=== PATIENT | male | born 1945 | race Caucasian/White ===

== ENCOUNTER 2020-07-15 11:58 | Outpatient (CLI) | payer MEDICARE, SELFPAY ==
--- NOTE | 2020-07-15 12:12 | ECG_ITS ---
Measurements Intervals [place] Rate: 106 P: MO: 0 QRS: 1 QRSD: 92 T: 42 QT: 322 QTc: 429 Interpretive Statements ATRIAL FIBRILLATION WITH RAPID VENTRICULAR RESPONSE ABNORMAL ECG Electronically Signed On 07-15-2020 12:59:34 CDT by Yunior Hernandez D.O.
== END 2020-07-15 11:59 | disposition home or self-care (01) ==
PROVIDERS: PCP Physician Assistant; Visit Provider Physician Assistant
DX: I49.9 Cardiac arrhythmia, unspecified (principal)
CPT/HCPCS: 93005

== ENCOUNTER 2020-10-14 11:33 | Outpatient (CLI) | payer MEDICARE, SELFPAY ==
[2020-10-14 12:49] LABS: Thyroid Stimulating Hormone Reflex 0.843 uIU/mL (0.465-4.68)
== END 2020-10-14 11:34 | disposition home or self-care (01) ==
LOC: ANHLAB 11:34
PROVIDERS: PCP Physician Assistant; Visit Provider Internal Medicine Cardiovascular Disease
DX: I48.91 Unspecified atrial fibrillation (principal)
CPT/HCPCS: 36415; 84443

== ENCOUNTER 2020-11-05 07:42 | Outpatient (CLI) | payer MEDICARE, SELFPAY ==
--- NOTE | 2020-11-05 07:45 | ECHO_ITS ---
Patient Info Name: Devin Trinidad Age: 75 years : 1945 Gender: Male Ht: 72 in Wt: 240 lbs BSA: 2.38 m2 HR: 110 bpm BP: 168 / 107 mmHg Technical Quality: Good Exam Date: 11/05/2020 8:12 AM Exam Location: [facility] Patient Status: Outpatient Admit Date: 11/05/2020 Staff Ordering Physician: Yunior Hernandez DO Telesales Specialist: Urbano King RDCS, RT Attending Provider: Yunior Hernandez DO Referring Physician: David BUSTAMANTE; Exam Type: CA echo dop color flow w con Study Info Indications I48.1 - Persistent atrial fibrillation Complete two-dimensional, color flow and Doppler transthoracic echocardiogram is performed. Strain analysis performed. Summary 1. Complete two-dimensional, color flow and Doppler transthoracic echocardiogram is performed. 2. Left ventricular chamber dimension is normal. 3. Left ventricular systolic function is normal, estimated at 60-65%. 4. There is mildly increased left ventricular wall thickness. 5. The left ventricular diastolic function is normal. 6. E/e' 5 is not elevated. 7. Global longitudinal strain is abnormal at -14.7%. 8. Atrial fibrillation. 9. Left atrial chamber dimension is mildly enlarged. 10. Right atrial chamber dimension is mildly enlarged. 11. There is mild mitral valve regurgitation. 12. There is mild to moderate tricuspid valve regurgitation. 13. No pulmonary hypertension, estimated pulmonary arterial systolic pressure is 33 mmHg. Left Ventricle E/e' 5 is not elevated. Global longitudinal strain is abnormal at -14.7%. Atrial fibrillation. Left ventricular chamber dimension is normal. Left ventricular systolic function is normal, estimated at 60-65%. There is mildly increased left ventricular wall thickness. The left ventricular diastolic function is normal. Right Ventricle Right ventricular chamber dimension is normal. Right ventricular systolic function is normal. Left Atria Left atrial chamber dimension is mildly enlarged. Right Atria Right atrial chamber dimension is mildly enlarged. Aortic Valve The aortic valve is trileaflet. There is no aortic valve stenosis. There is no aortic valve regurgitation. Pulmonic Valve There is no pulmonic regurgitation. Mitral Valve There is no mitral valve stenosis. There is mild mitral valve regurgitation. Tricuspid Valve There is mild to moderate tricuspid valve regurgitation. No pulmonary hypertension, estimated pulmonary arterial systolic pressure is 33 mmHg. Pericardium/Pleural There is no pericardial effusion. Inferior Vena Cava Normal inferior vena cava with >50% collapse upon inspiration consistent with normal right atrial pressure, 5 mmHg. Aorta The aortic root size at the sinus of Valsalva is normal. Left Ventricular Outflow Tract Name Value Normal LVOT 2D LVOT Diameter 2.04 cm LVOT Doppler LVOT Peak Gradient 2 mmHg LVOT Mean Gradient 1 mmHg LVOT VTI 16.49 cm LVOT VTI/AV VTI Ratio 0.76 LVOT Stroke Volume 53.89 ml
== END 2020-11-05 07:43 | disposition home or self-care (01) ==
PROVIDERS: PCP Physician Assistant; Visit Provider Internal Medicine Cardiovascular Disease
DX: I48.91 Unspecified atrial fibrillation (principal); I51.7 Cardiomegaly
CPT/HCPCS: C8929

== ENCOUNTER 2023-09-06 11:32 | Outpatient (CLI) | payer MEDICARE, SELFPAY ==
[2023-09-06 11:58] LABS: Hematocrit 38.2 % (42.0-52.0); Hemoglobin 12.7 g/dL (14.0-18.0); Mean Corpuscular HGB Conc 33.2 g/dl (32-36); Mean Corpuscular Hemoglobin 32.8 pg (26-34); Mean Corpuscular Volume 98.7 fl (80-100); Mean Platelet Volume 11.7 fl (7.4-10.4); Platelet Count Result 106 k/mm3 (150-375); Red Blood Count 3.87 M/mm3 (4.6-6.20); Red Cell Distribution Width 14.4 % (11.5-14.5)
[2023-09-06 12:11] LABS: Atypical Lymphocytes Present; Band Neutrophils Percent 5 % (0-6); Eosinophils Absolute Manual 0.02 K/mm3 (0.02-0.5); Eosinophils Percent Manual 1 % (0-4); Giant Platelets Present; Lymphocytes Absolute Manual 1.24 K/mm3 (1.1-4.5); Monocytes Absolute Manual 0.28 K/mm3 (0.1-0.90); Monocytes Percent Manual 14 % (3-9); Neutrophils Absolute Manual 0.46 K/mm3 (1.3-6.7); Neutrophils Percent Manual 18 % (46-73); Platelet Estimate Decreased (Adequate); Schistocytes None Seen (NORMAL); Total Cells Counted 100
[2023-09-06 16:32] LABS: Iron 101 ug/dL (49-181)
[2023-09-06 16:35] LABS: Alanine Aminotransferase 14 U/L (6-50); Albumin Level 4.5 g/dL (3.5-5.1); Alkaline Phosphatase 56 U/L (38-126); Anion Gap 9 mmol/L (8-16); Aspartate Amino Transferase 22 U/L (17-59); Bilirubin,Total 0.8 mg/dL (0.2-1.3); Blood Urea Nitrogen 16 mg/dL (9-20); Calcium 9.1 mg/dL (8.4-10.2); Carbon Dioxide 26 mmol/L (22-30); Chloride 107 mmol/L (98-107); Estimated Glomerular Filt Rate > 60; Glucose 115 mg/dL (65-110); Lactate Dehydrogenase 158 U/L (120-246); Potassium 4.5 mmol/L (3.4-5.0); Sodium 142 mmol/L (137-145)
[2023-09-06 16:43] LABS: Percent Iron Saturation 31 % (20-50)
[2023-09-06 17:41] LABS: Folic Acid 6.9 ng/mL (2.76->20)
[2023-09-10 05:07] LABS: Methylmalonic Acid 164 nmol/L (87-318)
[2023-09-13 09:53] LABS: Soluble Transferrin Receptor 0.77 mg/L (0.76-1.76)
== END 2023-09-06 11:33 | disposition home or self-care (01) ==
LOC: ANHLAB 11:34
PROVIDERS: PCP Physician Assistant; Visit Provider Internal Medicine Hematology & Oncology
DX: D64.9 Anemia, unspecified (principal); D61.818 Other pancytopenia
CPT/HCPCS: 36415; 80053; 82607; 82728; 82746; 83540; 83550; 83615; 83921; 84238; 85025

== ENCOUNTER 2023-09-14 00:38 | Day surgery (SDC) | payer MEDICARE, SELFPAY ==
--- NOTE | ~2023-09-14 | BM_ITS ---
EXAMINATION: CCL bone marrow asp w bx diag ORDER COMPLETED DATE: 09/14/2023 10:03 INDICATION: Pancytopenia TECHNIQUE: A time-out was performed to verify the patient's name, date of , and procedure to b e performed. The procedure including the risks, benefits, and alternatives was discussed with the pat ient. Risks discussed included bleeding and infection. The patient understood the risks and agreed to proceed. The skin overlying the right posterior iliac spine was prepped and draped in usual sterile fashion. Anesthetic was administered with 1% lidocaine subcutaneously. Systemic analgesia was provide d with 50 mcg fentanyl IV. An 11 gauge needle was inserted into the ilium with fluoroscopic guidance. Bone marrow was aspirated. An 8 gauge needle was then inserted into the ilium with fluoroscopic guid ance. A core bone marrow biopsy was obtained. There were no immediate complications. Fluoroscopy expo sure time was 0.1 minutes. The total number of images was 17. Total DAP was 160 mGycm^2 FINDINGS: Real-time fluoroscopy demonstrates a marker overlying the right posterior iliac spine. IMPRESSION: 1. Successful fluoro-guided bone marrow aspiration. 2. Successful fluoro-guided bone marrow core biopsy. Reviewed, dictated and finalized at location A. HOUSE SORTER
[2023-09-14 07:58] VITALS: BMI 27.8
[2023-09-14 08:00] VITALS: BP 127/88; PULSE 98; RESP 12; TEMP 36.6; O2SAT 100
[2023-09-14 08:24] LABS: Eosinophils Percent Auto 0.6 % (0-4.4); Hematocrit 40.8 % (42.0-52.0); Hemoglobin 13.7 g/dL (14.0-18.0); Immature Platelet Fraction Pct 11.7 % (0.9-11.2); Lymphocytes Absolute Auto 0.88 K/mm3 (0.9-3.2); Lymphocytes Percent Auto 51.8 % (18.3-44.2); Mean Corpuscular HGB Conc 33.6 g/dl (32-36); Mean Corpuscular Hemoglobin 32.5 pg (26-34); Mean Corpuscular Volume 96.7 fl (80-100); Mean Platelet Volume 13.1 fl (7.4-10.4); Monocytes Absolute Auto 0.5 K/mm3 (0.1-0.6); Monocytes Percent Auto 27.1 % (2.6-8.5); Neutrophils Absolute Auto 0.4 K/mm3 (1.3-6.7); Neutrophils Percent Auto 20.5 % (45.5-73.1); Platelet Count Result 111 k/mm3 (150-375); Red Blood Count 4.22 M/mm3 (4.6-6.20); Red Cell Distribution Width 14.5 % (11.5-14.5)
[2023-09-14 08:29] LABS: White Blood Count 1.7 K/mm3 (4.5-10.0)
[2023-09-14 08:33] LABS: INR 1.2; Prothrombin Time 15.2 Seconds (11.1-14.7)
--- NOTE | 2023-09-14 09:12 | WPDMODSED ---
Moderate Sedation Note-Pt Data Patient Data Diagnosis: pancytopenia Present Complaint: pancytopenia Procedure to be performed/Plan: bone marrow biopsy Allergies Allergy/AdvReac Type Severity Reaction Status Date / Time No Known Allergies Allergy Mild Verified 09/14/23 07:56 Home Medications Medication Instructions Recorded Confirmed Type apixaban 5 mg tablet (Eliquis) 5 mg PO BID 09/13/23 09/13/23 History ibuprofen-diphenhydramine citrate 2 cap PO HS PRN Insomnia 09/13/23 09/13/23 History 200 mg-38 mg tablet (Advil PM) Sedation/Anesthesia: No previous sedation/anesthesia problems (including family history). [facility] Past Medical History Medical History Arthritis Hemorrhoids Hyperlipidemia Surgical History Surgical History H/O colonoscopy History of cholecystectomy Family History Family History Sibling Family history of malignant neoplasm of breast in first degree relative Father Family history of heart disease in male family member before age 55 Social History Social History Smoking status: Never smoker Second hand tobacco smoke exposure: No Alcohol intake: current Drinks per week: 2 Alcohol use details: does not use every week Substance use type: marijuana Last use: 09/13/23 Lack of Transportation: No Lack of Food: Never True Current Housing: I Have Housing Concerned About Future Housing: No Difficulty Paying Gas/Electric Bills: No Difficulty Paying for Meds: No Currently Unemployed: No Education: Associate Degree Difficulty w/ Childcare or Family Care: No Living arrangements: with family Spiritual care concerns: No Mod Sed Physical Exam Physical Exam Pre Procedural Exam: Normal: Appearance, Throat, Lungs, Heart Rate and Heart Rhythm Hours since solid foods: 9 Hours since liquid intake: 9 Mallampati Classification: class III Internal Medicine - PN: Obj Da Vital Signs Vital Signs: Vital Signs - 24 hr 09/14/23 08:00 Temperature 98 F Pulse Rate 98 Respiratory Rate 12 Blood Pressure 127/88 Pulse Oximetry 100 Oxygen Delivery Room Air Labs 09/14/23 07:55 Labs: Laboratory Results - last 24 hr 09/14/23 07:55 WBC 1.7 L* RBC 4.22 L Hgb 13.7 L Hct 40.8 L MCV 96.7 MCH 32.5 MCHC 33.6 RDW 14.5 Plt Count 111 L MPV 13.1 H Immature Gran % (Auto) 0.0 Neut % (Auto) 20.5 L Lymph % (Auto) 51.8 H [place] % (Auto) 27.1 H Eos % (Auto) 0.6 Baso % (Auto) 0.0 L Lymph # (Auto) 0.88 L [place] # (Auto) 0.5 Eos # (Auto) 0.0 Baso # (Auto) 0.0 Abs Immat Gran (auto) 0.00 Absolute Neuts (auto) 0.4 L Absolute Nucleated RBC 0.0 Nucleated RBC % 0.0 % Immature Plt Fraction 11.7 H PT 15.2 H INR 1.2 ASA Classification/Sedation ASA Classification/Sedation ASA Class: III Emergent: No Risks: Risks, benefits and alternatives explained and patient/family accepted plan for sedation. Patient re-evaluated immediately prior to sedation.
[2023-09-14 09:52] VITALS: BP 133/88; PULSE 85; RESP 14; O2SAT 99
[2023-09-14 10:00] VITALS: BP 121/87; PULSE 81; RESP 17; O2SAT 98
[2023-09-14 10:15] VITALS: BP 124/84; PULSE 84; RESP 13; O2SAT 98
[2023-09-14 10:30] VITALS: BP 114/85; PULSE 78; RESP 14; O2SAT 97
[2023-09-14 10:45] VITALS: BP 118/75; PULSE 74; RESP 12; O2SAT 100
== END 2023-09-14 10:56 | disposition home or self-care (01) ==
PROVIDERS: PCP Physician Assistant; Referring Provider Internal Medicine Hematology & Oncology; Visit Provider Radiology Diagnostic Radiology
DX: D61.818 Other pancytopenia (principal); D64.89 Other specified anemias; D69.6 Thrombocytopenia, unspecified; D72.819 Decreased white blood cell count, unspecified; D75.89 Other specified diseases of blood and blood-forming organs; E78.5 Hyperlipidemia, unspecified; F12.90 Cannabis use, unspecified, uncomplicated; Z79.01 Long term (current) use of anticoagulants; Z82.49 Family history of ischemic heart disease and other diseases of the circulatory system; Z80.3 Family history of malignant neoplasm of breast; Z90.49 Acquired absence of other specified parts of digestive tract
CPT/HCPCS: 36415; 38222; 85025; 85055; 85610; 88184; 88185; 88305; 88311; 88313; 88341; 88342; J1642; J3010; J7040

== ENCOUNTER 2023-10-03 07:36 | Outpatient (CLI) | payer MEDICARE, SELFPAY ==
--- NOTE | ~2023-10-03 | US_ITS ---
Abdominal Sonogram: Real-time sonographic imaging of the abdomen was performed. Clinical History: Pancytopenia Findings: The liver appears normal with no evidence of mass lesion or bile duct dilatation. Main por vandana vein demonstrates normal direction of flow. The spleen is normal in size without evidence of foca l lesion. The gallbladder is absent, compatible prior cholecystectomy. The common bile duct measures 8 mm. The visualized pancreas, aorta, and IVC are unremarkable. The right kidney measures 11.8 cm in length and the left kidney measures 11.4 cm. There is no hydronephrosis or renal calculus. Multip le bilateral renal cysts are present. Impression: No significant abnormality. Multiple large bilateral renal cysts. Reviewed, dictated and finalized at location . ICIAN'S ASSISTANT Impression: No significant abnormality. Multiple large bilateral renal cysts.
== END 2023-10-03 07:37 | disposition home or self-care (01) ==
PROVIDERS: PCP Physician Assistant; Visit Provider Internal Medicine Hematology & Oncology
DX: D61.818 Other pancytopenia (principal); N28.1 Cyst of kidney, acquired
CPT/HCPCS: 76700

== ENCOUNTER 2024-11-30 09:14 | Outpatient (CLI) | payer MEDICARE, SELFPAY ==
[2024-11-30 09:32] LABS: Basophils Percent Auto 0.5 % (0.2-1.2); Hematocrit 33.6 % (42.0-52.0); Hemoglobin 10.9 g/dL (14.0-18.0); Immature Platelet Fraction Pct 9.3 % (0.9-11.2); Lymphocytes Absolute Auto 1.06 K/mm3 (0.9-3.2); Lymphocytes Percent Auto 52.7 % (18.3-44.2); Mean Corpuscular HGB Conc 32.4 g/dl (32-36); Mean Corpuscular Hemoglobin 32.6 pg (26-34); Mean Corpuscular Volume 100.6 fl (80-100); Mean Platelet Volume 11.8 fl (7.4-10.4); Monocytes Absolute Auto 0.6 K/mm3 (0.1-0.6); Monocytes Percent Auto 28.9 % (2.6-8.5); Neutrophils Absolute Auto 0.3 K/mm3 (1.3-6.7); Neutrophils Percent Auto 16.9 % (45.5-73.1); Platelet Count Result 120 k/mm3 (150-375); Red Blood Count 3.34 M/mm3 (4.6-6.20)
[2024-11-30 09:34] LABS: Blood Urea Nitrogen 11 mg/dL (8-26); Carbon Dioxide 24 mmol/L (22-30); Chloride 108 mmol/L (98-109); Estimated Glomerular Filt Rate > 60; Glucose 92 mg/dL (70-105); Ionized Calcium (POC) 1.18 mmol/L (1.11-1.31); Potassium 4.9 mmol/L (3.5-4.9); Sodium 141 mmol/L (138-146)
--- OUTSIDE RECORDS SUMMARY | 2024-11-30 09:40 | XMS_ITS | Clinical Summary ---
Author Organization [facility] dian [facility] Address [address] [place] [address] Care Team Providers Care Glass Sander Belt Name Role Phone Adryan Pedro DO Primary Care Provider [phone] Allergies No known active allergies Medications apixaban (Eliquis) 5 mg tablet Take 5 mg by mouth 2 times daily. Active ibuprofen (ADVIL;MOTRIN) 100 mg/5 mL suspension Take 100 mg by mouth every 6 hours as needed. Active Active Problems No known active problems Encounters Date Type Department Care Team Description 11/14/2024 External Device Data STL ABSTRACTION Provider, Abstract 10/18/2024 External Device Data STL ABSTRACTION Provider, Abstract from Last 3 Months Family History Medical History Relation Name Comments No Known Problems Brother 1 Throat Cancer Brother 2 No Known Problems Brother 3 No Known Problems Daughter No Known Problems Father No Known Problems Mother Breast Cancer Sister No Known Problems Son Relation Name Status Comments Brother 1 Alive Brother 2 Alive Brother 3 Alive Daughter Alive Father Alive Mother Alive Sister Son Alive Social History Tobacco Use Types Packs/Day Years Used Date Smoking Tobacco: Never Smokeless Tobacco: Never Tobacco Cessation:Counseling Given: Not Answered Alcohol Use Standard Drinks/Week Comments Yes 0 (1 standard drink = 0.6 oz pur e alcohol) socially Sex and Gender Information Value Date Recorded Sex Assigned at Not on file Legal Sex Male 8:30 AM DIRECTOR OF PUBLIC RELATIONS Gender Identity Not on file Sexual Orientation Not on file Last Filed Vital Signs Vital Sign Reading Time Taken Comments Blood Pressure 135/83 08/14/2024 11:19 AM DIRECTOR OF PUBLIC RELATIONS Pulse 79 08/14/2024 11:17 AM DIRECTOR OF PUBLIC RELATIONS Temperature 36.7 C (98 F) 08/14/2024 11:17 AM DIRECTOR OF PUBLIC RELATIONS Respiratory Rate 15 08/14/2024 11:17 AM DIRECTOR OF PUBLIC RELATIONS Oxygen Saturation 97% 08/14/2024 11:17 AM DIRECTOR OF PUBLIC RELATIONS Inhaled Oxygen Concentration - - Weight 88.7 kg (195 lb 9.6 oz) 08/14/2024 11:17 AM DIRECTOR OF PUBLIC RELATIONS Height 182.9 cm (6') 09/06/2023 10:35 AM DIRECTOR OF PUBLIC RELATIONS Body Mass Index 26.53 09/06/2023 10:35 AM DIRECTOR OF PUBLIC RELATIONS Plan of Treatment Upcoming Encounters Date Type Department Care Team (Late st Contact Info) Description 11/30/2024 9:45 AM DIRECTOR OF PUBLIC RELATIONS Office Visit [facility] Oncology and Hematology - [place] [address] [facility] [address] [place] [address] Robe Gaston MD [address] [place] [address] Health Maintenance Due Date Last Done Comments DTAP/TDAP/TD VACCINES (1 - Tdap) 1964 PNEUMOCOCCAL VACCINE 50+ YEARS (1 of 1 - PCV) 09/24/19 94 ZOSTER VACCINE (1 of 2) 1994 RSV VACCINE (60+ or ) (1 - 1-dose 75+ series) 2019 INFLUENZA VACCINE (#1) 2024 Medicare [place] ([place]) Prev entative Visit/Annual Wellness Visit 09/26/2024 Insurance [employer]ET[employer] PPO MCR Care Teams Glass Sander Belt Relationship Specialty Start Date End Date Adryan Pedro DO [address] [place] [id number] PCP - General Internal Medicine 09/06/23
--- OUTSIDE RECORDS SUMMARY | 2024-11-30 09:40 | XMS_ITS | Clinical Summary ---
Author Organization [facility] Address [address] [place] [address] Care Team Providers Care Bottling Room Worker Name Role Phone Willis Adryan Colin DO Primary Care Provider [phone] Source Comments [facility],non-owned Affiliates and Associated Physician Practices is amultiple site organization consisting of ambulatory clinics and hospital sitesin [place], [place], [place] and [place]. This disclosure is being madepursuant to the Care Everywhere program and may not contain all information available regarding this patient. Last updated 18.[facility] Allergies No known active allergies Medications * Be aware that medications may not be up to date on this document. Alwaysverify current medications with the patient. Medication Sig Dispensed Refills Start Date End Date Status Eliquis 5 MG tablet Take 1 (one) tablet by mouth 2 times daily 11/17/2023 Active cyanocobalamin (Vitamin B-12) 1000 MCG tablet Take 1 (one) tablet by mouth once daily Active ibuprofen (Advil; Motrin) 100 MG/5ML suspension Take 5 mL by mouth every 6 hours as needed for Pain or Fever Active Active Problems No known active problems Family History Medical History Relation Name Comments Cancer - Breast Sister Relation Name Status Comments Father Mother Sister half-brother 1 Don Alive half-brother 2 Isaac Alive half-brother 3 Joe Alive Social History Tobacco Use Types Packs/Day Years Used Date Smoking Tobacco: Never Smokeless Tobacco: Never Alcohol Use Standard Drinks/Week Comments Yes 0 (1 standard drink = 0.6 oz pur e alcohol) Occasional drinker Sex and Gender Information Value Date Recorded Sex Assigned at Not on file Gender Identity Not on file Sexual Orientation Not on file Last Filed Vital Signs Vital Sign Reading Time Taken Comments Blood Pressure 145/99 12/15/2023 3:15 PM CDT Pulse 83 12/15/2023 3:15 PM CDT Temperature 36.8 C (98.3 F) 12/15/2023 3:15 PM CDT Respiratory Rate 18 12/15/2023 3:15 PM CDT Oxygen Saturation 98% 12/15/2023 3:15 PM CDT Inhaled Oxygen Concentration - - Weight 94.2 kg (207 lb 11.2 oz) 12/15/2023 3:15 PM CDT Height 183 cm (6' 0.05 ) 12/15/2023 3:15 PM CDT Body Mass Index 28.13 12/15/2023 3:15 PM CDT Plan of Treatment Health Maintenance Due Date Last Done Comments DTAP/TDAP/TD VACCINES (1 - Tdap) 1964 PNEUMOCOCCAL VACCINE 50+ (1 of 1 - PCV) 1994 ZOSTER VACCINE (1 of 2) 1994 Respiratory Syncytial Virus (RSV) Vaccine Pt: or over 60 yrs (1 - 1-dose 75+ series) 2019 COVID-19 VACCINE ( season) 2024 06/22/2023, 07/05/2022, 08/21/2021, Additional history exists INFLUENZA VACCINE (#1) 2024 06/22/2023, 2021 DEPRESSION SCREENING 09/26/2024 MEDICARE AWV CALENDAR YEAR 2024 HEPATITIS B VACCINE Aged Out No longe r eligible based on patient's age to complete this topic HIB VACCINE Aged Out No longer eligi ble based on patient's age to complete this topic HPV VACCINE Aged Out No longer eligi ble based on patient's age to complete this topic MENINGOCOCCAL (Group B) VACCINE Aged Out No longer eligible based on patient's age to complete this topic MENINGOCOCCAL VACCINE Aged Out No anita martine eligible based on patient's age to complete this topic Care Teams Bottling Room Worker Relationship Specialty Start Date End Date Adryan Pedro DO [address] [facility] [address] [place] [address] PCP - General 02/09/19
--- OUTSIDE RECORDS SUMMARY | 2024-11-30 09:40 | XMS_ITS | Encounter Summary ---
Author Organization [facility] Address [address] [place] [address] Care Team Providers Care Lands Resource Manager Name Role Phone Adryan Pedro Primary Care Provider [phone] Encounter Details Date Type Department Care Team (Late st Contact Info) Description 09/15/2023 Lab Requisition [facility] - Pathology Lab [address] [place] [address] Destin Rodriguez MD [address] [address] Illness, unspecified Social History Tobacco Use Types Packs/Day Years Used Date Smoking Tobacco: Never Assessed Sex and Gender Information Value Date Recorded Sex Assigned at Not on file Gender Identity Not on file Sexual Orientation Not on file documented as of this encounter Plan of Treatment Not on file documented as of this encounter Procedures Procedure Name Priority Date/Time Associated Diagnosis Comments BONE MARROW BIOPSY (STL) Routine 09/14/2023 9:26 AM DUST SAMPLER Illness, unspecified documented in this encounter Results * BONE MARROW BIOPSY (STL) (09/14/2023 9:26 AM DUST SAMPLER) Case Report Bone Marrow Patholog y Report Case: [id number] Authorizing Provider: Kane Rodriguez MD Collected: 09/14/2023 09:26 AM Ordering Location: [facility] Pathology Lab Received: 09/15/2023 02:36 PM Pathologist: Luis Carlos Kuhn MD Specimens: A) - Bone Marrow Clot B) - Bone Marrow Core 09/16/2023 2:10 PM [facility] Final Diagnosis Bone marrow, aspirate, clot section, and core biopsy: - Hypercellular bone marrow for age (60% cellularity) - Trilineage hematopoiesis with increased myeloids and mild left shift - No significant dyspoiesis. Peripheral blood smear: - Marked leukopenia - Mild normocytic normochromic anemia, and mild thrombocytopenia 09/16/2023 2:10 PM [facility] Comment There is no diagnostic evidence of advanced myelodysplastic neoplasm, acute leukemia, or lymphoma. Clinical correlation, and correlation with available cytogenetics, and molecular studies recommended. 09/16/2023 2:10 PM [facility] Peripheral Smear Description RBC: Normocytic and normochromic anemia, mild. No circulating nucleated RBCs. WBC: Markedly decreased in number with predominantly lymphocytes, no circulating blasts seen Platelets: Mildly decreased in number. Normal granulation. Rare giant forms. 09/16/2023 2:10 PM [facility] Bone Marrow Aspirate Specimen quality: Adequate Spicules: Present Trilineage Hematopoiesis: Normal Myeloid:Erythroid ratio: Increased Myeloid Maturation: Normal Erythroid Maturation: Normal, rare cells with nuclear contour irregularity, and rare binucleated cells Megakaryocyte morphology: Normal, rare microcytic forms, and forms with hypo- or mono-lobation Storage iron (by special stain): Decreased Sideroblastic iron (by special stain): No ring sideroblasts seen 09/16/2023 2:10 PM [facility] Bone Marrow Core Biopsy and Clot Section Description Specimen quality: Adequate, 15 mm of evaluable marrow Cellularity: 60%, hypercellular Blasts: Few, no aggregates, less than 1%, highlighted by CD34 and CD117 Trilineage Hematopoiesis: Present Myeloid to Erythroid ratio: Increased Myeloid maturation and localization: Normal Erythroid maturation and localization: Normal Megakaryocyte number: Mildly increased Megakaryocyte distribution: Normal Lymphoid aggregates: none seen Reticulin stain: No increased reticulin fibrosis (MF-0/3) Storage iron (by special stain): Decreased Sideroblastic iron (by special stain): No ring sideroblasts seen Clot section marrow particles: Present Clot section morphology: Similar to core biopsy specimen 09/16/2023 2:10 PM [facility] Flow Cytometry Summary Bone marrow, flow cytometric immunophenotypic analysis: - No diagnostic evidence of clonal B-cells or expanded T-cells, or acute leukemia. 09/16/2023 2:10 PM [facility] Clinical History 77-year-old male with pancytopenia. 09/16/2023 2:10 PM [facility] Materials Received Received are 20 slide(s) and 3 block(s) labeled [id number] along with a copy of the outside pathology report. [place] [address]. All original materials are returned to the referring institution, along with a copy of our final report. 09/16/2023 2:10 PM [facility] Pathologist Location at [facility] 09/16/2023 2:10 PM [facility] Disclaimer The performance characteristics of all immunohistochemical and indirect immunofluorescence stains (if any) cited in this report were determined by the Histopathology Laboratory of [facility]. Some of these tests were developed by our own laboratory and have not been cleared or approved by the US Food and Drug Administration. The FDA does not require this test to go through premarket FDA review. These tests are used for clinical purposes. They should not be regarded as investigational or for research. This laboratory is certified under the Clinical Laboratory Improvement Amendments (CLIA) as qualified to perform high complexity clinical laboratory testing. This case has been personally reviewed and interpreted by the attending (teaching) pathologist. 09/16/2023 2:10 PM [facility] Embedded Images 09/16/2023 2:10 PM [facility] Pathology/Cytology BONE MARROW SPECIMEN / Unknown 09/14/2023 9:26 AM DUST SAMPLER 09/15/2023 2:36 PM DUST SAMPLER Miscellaneous samples (specimen) BONE MARROW SPECIMEN / Unknown 09/14/2023 9:26 AM DUST SAMPLER 09/15/2023 2:36 PM DUST SAMPLER Destin Rodriguez MD LAB - PATHO LOGY/CYTOLOGY ORDERABLES [facility] [address] [phone] documented in this encounter Visit Diagnoses Diagnosis Illness, unspecified documented in this encounter Care Teams Lands Resource Manager Relationship Specialty Start Date End Date Adryan Pedro DO [address] [facility] [address] [place] [address] PCP - General 02/09/19 documented as of this encounter
--- OUTSIDE RECORDS SUMMARY | 2024-11-30 09:40 | XMS_ITS | Continuity of Care Document ---
Author Organization [facility] Address [address] [place] [address] [facility] [address] [place] [address] Phone Care Team Providers Care Regional Planner Name Role Phone Luís Schwartz Unavailable Unavailable Procedures Procedure Date Eye Exam, New Patient Advance Directives Directive Yes / No Effective Date File Name No Information Encounters Encounter Description Practice Location Reason(s) For Visit Diagnoses Date Provider Providers Copied on Encounter [facility], [address], [place], [place], [id number], [place] tel:[phone] [facility] No Information [phone] Nirajangiefabiola Luís. [address] [facility] [address], [address], [place]. tel:[phone] Family History Family Member Type Diagnosis Age At Onset No Information Payers Payer name Insurance type Covered democrat ID Authoriza tion(s) [place] [id number] Social History Type Description Quantity Date Captured Comments Sex Male Smoking Status No Information Chief Complaint And Reason For Visit No Information Reason For Referral Reason For Referral No Information History Of Present Illness Encounter Date Complaint History Of Prese nt Illness No Information Functional Status Date Functional Assessmen t No Information Instructions Date Instruction Additional Infor mation No Information Assessments Type Assessment Date No Information Patient Care Teams Name Effective Dates (start - stop) Status Members No Information
--- OUTSIDE RECORDS SUMMARY | 2024-11-30 09:40 | XMS_ITS | Referral Summary ---
Author Organization [facility] Address [address] [place] [address] Care Team Providers Care Block Captain Name Role Phone Willis Adryan Colin DO Primary Care Provider [phone] Source Comments [facility],non-owned Affiliates and Associated Physician Practices is amultiple site organization consisting of ambulatory clinics and hospital sitesin [place], [place], [place] and [place]. This disclosure is being madepursuant to the Care Everywhere program and may not contain all information available regarding this patient. Last updated 18.[facility] Allergies No known active allergies Medications * [...] Active Active Problems No known active problems Social History Tobacco Use Types Packs/Day Years [...] 12/15/2023 3:15 PM CDT Plan of Treatment Not on file Care Teams Block Captain Relationship Specialty Start Date End Date Adryan Pedro DO [address] [place], [place] [id number] PCP - General 02/09/19
--- OUTSIDE RECORDS SUMMARY | 2024-11-30 09:40 | XMS_ITS | Patient Health Summary ---
Author Organization [facility] Address [address] [place] [address] Care Team Providers Care Cartridge Maker Name Role Phone Juvenalnaida Adryan Colin DO Primary Care Provider [phone] Note from [facility],non-owned Affiliates and Associated Physician Practices is amultiple site organization consisting of ambulatory clinics and hospital sitesin [place], [place], [place] and [place]. This disclosure is being madepursuant to the Care Everywhere program and may not contain all information available regarding this patient. Last updated 18.[facility] Allergies No known active allergies Medications * Be aware that medications may not be up to date on this document. Alwaysverify current medications with the patient. * Eliquis 5 MG tablet(Started 11/17/2023) Take 1 (one) tablet by mouth 2 times daily * cyanocobalamin (Vitamin B-12) 1000 MCG tablet Take 1 (one) tablet by mouth once daily * ibuprofen (Advil; Motrin) 100 MG/5ML suspension Take 5 mL by mouth every 6 hours as needed for Pain or Fever Active Problems No known active problems Social [...] Mass Index 28.13 12/15/2023 3:15 PM CDT Procedures * MYELOID MALIGNANCIES MUTATION PNL(Performed 12/15/2023) Performed for Pancytopenia (HCC) * DIFFERENTIAL MANUAL(Performed 12/15/2023) Performed for Pancytopenia (HCC) * URIC ACID BLOOD(Performed 12/15/2023) Performed for Pancytopenia (HCC) * LDH BLOOD(Performed 12/15/2023) Performed for Pancytopenia (HCC) * COMPREHENSIVE METABOLIC PANEL(Performed 12/15/2023) Performed for Pancytopenia (HCC) * CBC W AUTO DIFFERENTIAL(Performed 12/15/2023) Performed for Pancytopenia (HCC) * BONE MARROW BIOPSY (STL)(Performed 09/14/2023) Performed for Illness, unspecified * FLOW CYTOMETRY BONE MARROW(Performed 09/14/2023) Performed for Other pancytopenia (CMS-HCC) Results * MYELOID MALIGNANCIES MUTATION PNL (12/15/2023 3:08 PM CDT) Interpretation Myeloid Malignancy PNL See Note 01/02/2024 4:05 PM CDT REPLACED BY [facility] ([facility]) Comment: Myeloid Malignancies Mutation Panel NGS Submitted diagnosis or diagnosis under consideration for variant interpretation: Pancytopenia TIER 1: Variants of Known Clinical Significance in Hematologic Malignancies 1. ZRSR2 c.313-1G>A, p.? (NM_005089.4) VAF: 50.2% ZRSR2 encodes a component of the RNA splicing machinery known as the spliceosome. Somatic mutations of ZRSR2 are found in 3-11% of patients with myelodysplastic syndrome (MDS) (3) (5) (9) (10). ZRSR2 mutations are also seen in acute myeloid leukemia (AML), myelodysplasia related (AML-MR) (7) (6) (1). In myeloid malignancies, ZRSR2 mutations are often wshu-uc-tqugxjua mutations, including nonsense and frameshift alterations (5) (10). This particular mutation abolishes the splice acceptor site of intron 4 and is predicted to cause abnormal splicing of ZRSR2 ([employer] Visual Plus v.1.5.1). The prognostic impact of ZRSR2 mutations in MDS patients is uncertain. While one study reported shorter overall survival and higher risk of transformation to AML in ZRSR2-mutated MDS patients without TET2 mutations (5), another study found that mutated ZRSR2 did not predict clinical outcome based on a small number of patients with ZRSR2 mutations (9). 2. TET2 c.1471C>T, p.Pun247* (NM_[id number]) VAF: 44.1% There are two TET2 mutations. TET2 encodes an enzyme that is part of the Ten-Eleven Translocation (TET) family of dioxygenases that convert 3-nghepf-mjhncjfn (5-mC) to 9-eazavhxrlncja-udzkpdeu (5-hmC) in the process of DNA demethylation (8). Somatic TET2 mutations are found in approximately 25% of patients with MDS (4). In myeloid malignancies, TET2 mutations often result in tbsh-bn-ddugtncs (4). This particular mutation is predicted to alter the normal function of TET2. The prognostic significance of somatic TET2 mutations in myeloid malignancies remains unclear. In MDS patients, somatic TET2 mutations in the absence of an ASXL1 mutation predict better response to hypomethylating agents (2). 3. TET2 c.2544dup, p.Vuw671th (NM_[id number]) VAF: 1.7% This second TET2 mutation is also predicted to alter the normal function of TET2. TIER 2: Variants of Unknown Clinical Significance in Hematologic Malignancies 1. FLT3 c.1626C>G, p.Sil461Mdw (NM_004119.3) VAF: 48.9% This particular variant occurs at the boundary between the extracellular and transmembrane domains and has not been reported in hematologic malignancies, to the best of our knowledge. 2. NOTCH1 c.2359A>C, p.Kbx299Ulp (NM_017617.5) VAF: 48.1% This variant has not been reported in hematologic malignancies, to the best of our knowledge. References 1: Wilman SANDERS, Johnny Jarrett, Alberto PIZARRO et al, International Consensus Classification of Myeloid Neoplasms and Acute Leukemias: integrating morphologic, clinical, and genomic data. Blood 2021. PMID:83193308 2: Lord Luiza Villela Stevenson K et al, TET2 mutations predict response to hypomethylating agents in myelodysplastic syndrome patients. Blood 2014. PMID:07662116 3: Germán Villela KE, Ruben KRISHNAMURTHY et al, Validation of a prognostic model and the impact of mutations in patients with lower-risk myelodysplastic syndromes. J Clin Oncol 2012. PMID:66778486 4: Scotty GMando, Sonido TL et al, Clinical, molecular, and prognostic correlates of number, type, and functional localization of TET2 mutations in chronic myelomonocytic leukemia (CMML)-a study of 1084 patients. Leukemia 2020. PMID:00893261 5: Sergio F, Evans Noonan, Ezio Esquivel et al, Mutations affecting mRNA splicing define distinct clinical phenotypes and correlate with patient outcome in myelodysplastic syndromes. Blood 2012. PMID:16053235 6: Jerry SHAH, Cindy Triplett et al, The 5th edition of the World Health Organization Classification of Haematolymphoid Tumours: Myeloid and Histiocytic/Dendritic Neoplasms. Leukemia 2021. PMID:86440561 7: Marvin ACOSTA, Teagan BG, Uri Andujar et al, Acute myeloid leukemia ontogeny is defined by distinct somatic mutations. Blood 2015. PMID:26880241 8: Mata Triplett, Wayne Jarrett et al, The Ten-Eleven Translocation-2 (TET2) gene in hematopoiesis and hematopoietic diseases. Leukemia 2014. PMID:19032152 9: Iván Paredes, Mason S, Kady C et al, Frequency and prognostic impact of mutations in SRSF2, U2AF1, and ZRSR2 in patients with myelodysplastic syndromes. Blood 2012. PMID:11238603 10: Weston De La Rosa MPaul et al, Frequent pathway mutations of splicing machinery in myelodysplasia. Nature 2011. PMID:13873762 This result has been reviewed and approved by Aga Childress M.D. Low coverage regions: Listed below are regions where the average sequencing depth (number of times a particular nucleotide is sequenced) in at least 20% of the ngzatp-it-fqgnqlyy is less than our stringent cutoff of 300. Sensitivity for detection of low allelic frequency variants may be reduced in areas with reduced depth of coverage. BCOR(NM_001123385.2) exon 2 SMC1A(NM_006306.4) exon 16 SMC1A(NM_006306.4) exon 19 BACKGROUND INFORMATION: Myeloid Malignancies Mutation Panel by Next Generation Sequencing CHARACTERISTICS: Myeloid malignancies are clonal disorders of hematopoietic stem and progenitor cells that include myelodysplastic syndromes (MDSs), myeloproliferative neoplasms (MPNs), myelodysplastic/myeloproliferative neoplasms (MDS/MPNs), and acute myeloid leukemia (AML). Recent studies have identified recurrently mutated genes with diagnostic and/or prognostic impact in myeloid malignancies. The presence of certain mutations may inform clinical management. This multigene panel by massively parallel sequencing (next generation sequencing) is a more cost-effective approach when compared to the cost of multiple single gene tests. This test can be used to complement the morphologic and cytogenetic workup of myeloid malignancies. GENES TESTED: ANKRD26; ASXL1; ASXL2; BCOR; BCORL1; BRAF; CALR; CBL; CBLB; CEBPA; CSF3R; CUX1*; DDX41; DNMT1*; DNMT3A; ELANE; ETNK1; ETV6; EZH2; FBXW7; FLT3; GATA1; GATA2; GNAS; HNRNPK; IDH1; IDH2; IL7R; JAK1; JAK2; JAK3; KDM6A*; KIT; KMT2A; KRAS; LUC7L2; MPL; NOTCH1; NPM1*; NRAS; NSD1; PHF6; PIGA; PPM1D; XBSG64Q; PRPF8; PTPN11; RAD21; RUNX1; SAMD9; SAMD9L; SETBP1; SF3B1; SH2B3; SMC1A; SMC3; SRSF2; STAG2; STAT3; STAT5B*; SUZ12*; TET2; TP53; U2AF1; U2AF2; UBA1; WT1; ZRSR2. *One or more exons of the preferred transcript were not covered by sequencing for the indicated gene; see limitations section below. METHODOLOGY: Genomic DNA was isolated from peripheral blood or bone marrow and then enriched for the targeted exonic regions of the tested genes. The variant status of the targeted genes was determined by massively parallel sequencing. The hg19 (GRCh37) human genome assembly was used as a reference for identifying genetic variants. Clinically significant variants and variants of uncertain significance called in the preferred transcript are reported. LIMITATIONS: Variants outside the targeted regions or below the limit of detection are not identified. Variants in regions that are not included in the preferred transcript for the targeted genes are not detected. In some cases, variants may not be identified due to technical limitations in the presence of pseudogenes or in repetitive or homologous regions. It is also possible some insertion/deletion variants may not be identified. Benign or likely benign variants in the preferred transcript are not reported. The following regions were not sequenced due to technical limitations of the assay: CUX1 (NM_181552) exon 24 DNMT1 (NM_[id number]) exon 5 KDM6A (NM_001291415) exon 13 NPM1 (NM_002520) exon 1 STAT5B (NM_012448) exons 6-9 SUZ12 (NM_015355) exons 1-9 LIMIT OF DETECTION (LOD): 5 percent variant allele fraction (VAF) for single nucleotide variants (SNV) and small variants less than 24 base pairs (bp). Variants greater than 24bp may be detected at LOD, but the analytical sensitivity may be reduced. ANALYTICAL SENSITIVITY: The positive percent agreement (PPA) estimate for the respective variant classes (with 95 percent credibility region) are listed below. Genes included on this test are a subset of a larger methods-based validation from which the PPA values are derived. Single nucleotide variants (SNVs): 96.9 percent (95.1-98.1 percent) Insertions/duplications (1-24bp): 98.1 percent (95.5-99.3 percent) Insertions/duplications (greater than 24bp): greater than 99 percent (92.9-100.0 percent) Deletions (1-24bp): 96.7 percent (92.8-98.7 percent) Deletions (greater than 24bp): 90 percent (79.5-96.1 percent) Multinucleotide variants (MNVs): 97 percent (93.0-99.0 percent) FLT3 ITDs: Greater than 99 percent (97.1-100.0 percent) CLINICAL DISCLAIMER: Results of this test must always be interpreted within the context of clinical findings and other relevant data and should not be used alone for a diagnosis of malignancy. This test is not intended to detect minimal residual disease. This test was developed and its performance characteristics determined by [employer]. It has not been cleared or approved by the U.S. Food and Drug Administration. This test was performed in a CLIA-certified laboratory and is intended for clinical purposes. Myeloid Malignancy Dx Pancytopenia 01/02/2024 4:05 PM CDT REPLACED BY [facility] ([facility]) Myeloid Malignancy Panel Specimen Whole Blood 01/02/2024 4:05 PM CDT [facility] [employer] ([facility]) EER Myeloid Malignancy See Note 01/02/2024 4:05 PM CDT [facility] [employer] ([facility]) Comment: Authorized individuals can access the [facility] Enhanced Report using the following link: [email or web address] Performed By: [employer] [address] [place] [address] Mathematical Engineer: Johnny Tam MD, PhD CLIA Number: [id number] Other BLOOD SPECIMEN / Unknown Collection / Unknown 12/15/2023 3:08 PM CDT 12/15/2023 3:20 PM CDT Michael Wiseman MD LAB - PATHOLOGY/CYTO LOGY ORDERABLES Performing Organization Address City/[facility]/ZIP Co de Phone Number [facility]) [address] [place], [place] [address] * URIC ACID BLOOD (12/15/2023 3:08 PM CDT) Uric Acid 4.7 3.5 - 7.2 mg/dL 12/15/2023 3:51 PM CDT [facility] Blood BLOOD SPECIMEN / Unknown Lab Venipuncture / Unknown 12/15/2023 3:08 PM CDT 12/15/2023 3:22 PM CDT Michael Wiseman MD LAB - CHEMISTRY AWA JONES [address] [address], [facility] [phone] * (ABNORMAL) DIFFERENTIAL MANUAL (12/15/2023 3:08 PM CDT) Neutrophil % 19(L) 41 - 74 % 12/15/2023 3:49 PM CDT [facility] Lymphocyte % 61(H) 17 - 47 % 12/15/2023 3:49 PM CDT [facility] Monocyte % 19(H) 3 - 11 % 12/15/2023 3:49 PM CDT [facility] Eosinophil % 1 0 - 7 % 12/15/2023 3:49 PM CDT [facility] Neutrophil Absolute 0.38(L) 1.60 - 7.50 x10E9/L 12/15/2023 3:49 PM CDT [facility] Lymphocyte Absolute 1.22 1.00 - 4.40 x10E9/L 12/15/2023 3:49 PM CDT [facility] Monocyte Absolute 0.38 0.15 - 1.00 x10E9/L 12/15/2023 3:49 PM CDT [facility] Eosinophil Absolute 0.02 0.00 - 0.60 x10E9/L 12/15/2023 3:49 PM CDT [facility] RBC Morphology REVIEWED 12/15/2023 3:49 PM CDT [facility] Giant Platelets PRESENT(A) (none) 12/15/2023 3:49 PM CDT [facility] Large Platelets PRESENT(A) (none) 12/15/2023 3:49 PM CDT [facility] Blood BLOOD SPECIMEN / Unknown Lab Venipuncture / Unknown 12/15/2023 3:08 PM CDT 12/15/2023 3:22 PM CDT Michael Wiseman MD LAB - HEMATOLOGY ORD ERABLES [facility] [address] [place] [address], [facility] [phone] * (ABNORMAL) CBC WITH DIFFERENTIAL (12/15/2023 3:08 PM CDT) WBC 2.0(L) 4.0 - 10.7 x10E9/L 12/15/2023 3:49 PM [facility] RBC Count 3.82(L) 4.30 - 5.80 x10E12/L 12/15/2023 3:49 PM [facility] Hemoglobin 12.8(L) 13.3 - 17.5 g/dL 12/15/2023 3:49 PM [facility] Hematocrit 36.8(L) 38.7 - 51.1 % 12/15/2023 3:49 PM [facility] MCV 96.3 80.0 - 98.0 fL 12/15/2023 3:49 PM [facility] MCH 33.5 26.7 - 33.6 pg 12/15/2023 3:49 PM [facility] MCHC 34.8 31.7 - 36.3 g/dL 12/15/2023 3:49 PM [facility] RDW-CV 14.4 11.3 - 14.8 % 12/15/2023 3:49 PM [facility] Platelet Count 112(L) 150 - 420 x10E9/L 12/15/2023 3:49 PM [facility] MPV 12.9(H) 7.8 - 11.4 fL 12/15/2023 3:49 PM [facility] Blood BLOOD SPECIMEN / Unknown Lab Venipuncture / Unknown 12/15/2023 3:08 PM CDT 12/15/2023 3:22 PM CDT Michael Wiseman MD LAB - HEMATOLOGY ORD ERABLES [facility] [address] [place] [address], [facility] [phone] * (ABNORMAL) COMPREHENSIVE METABOLIC PANEL (12/15/2023 3:08 PM CDT) BUN 16 7 - 26 mg/dL 12/15/2023 3:51 PM T [facility] Creatinine 1.01 0.71 - 1.16 mg/dL 12/15/2023 3:51 PM [facility] Sodium 140 136 - 145 mmol/L 12/15/2023 3:51 PM [facility] Potassium 4.4 3.5 - 4.5 mmol/L 12/15/2023 3:51 PM [facility] Chloride 108(H) 98 - 107 mmol/L 12/15/2023 3:51 PM [facility] CO2 23 22 - 29 mmol/L 12/15/2023 3:51 PM [facility] Glucose 125(H) 70 - 115 mg/dL 12/15/2023 3:51 PM [facility] Calcium 9.2 8.4 - 10.2 mg/dL 12/15/2023 3:51 PM [facility] Protein Total 7.2 6.0 - 8.3 g/dL 12/15/2023 3:51 PM [facility] Albumin 4.2 3.4 - 5.0 g/dL 12/15/2023 3:51 PM [facility] Bilirubin Total 0.5 0.2 - 1.2 mg/dL 12/15/2023 3:51 PM [facility] Alkaline Phosphatase 55 40 - 150 U/L 12/15/2023 3:51 PM [facility] ALT 9 5 - 55 U/L 12/15/2023 3:51 PM [facility] AST 16 5 - 34 U/L 12/15/2023 3:51 PM [facility] Anion Gap 9 6 - 16 12/15/2023 3:51 PM [facility] BUN/Creatinine Ratio 16 7 - 23 12/15/2023 3:51 PM [facility] Osmolality Calculated 293 275 - 295 mOsm/kg 12/15/2023 3:51 PM [facility] Albumin/Globulin Ratio 1.4 1.1 - 2.3 12/15/2023 3:51 PM [facility] eGFR by CKD-EPI 76(L) >=90 mL/min/1.7 3 m2 12/15/2023 3:51 PM [facility] Blood BLOOD SPECIMEN / Unknown Lab Venipuncture / Unknown 12/15/2023 3:08 PM CDT 12/15/2023 3:22 PM CDT Michael Wiseman MD LAB - CHEMISTRY AWA JONES [address] [address], [place] [phone] * LDH BLOOD (12/15/2023 3:08 PM CDT) LDH Total 156 125 - 243 Units/L 12/15/2023 3:51 PM CDT [facility] Blood BLOOD SPECIMEN / Unknown Lab Venipuncture / Unknown 12/15/2023 3:08 PM CDT 12/15/2023 3:22 PM CDT Michael Wiseman MD LAB - CHEMISTRY AWA JONES Performing Organization Address [facility]/ZIP Co de Phone Number [address] [address], [place] [phone] * FLOW CYTOMETRY BONE MARROW (09/14/2023 9:26 AM SENIOR FIRE PROTECTION ENGINEER) Pathologist [facility] Case Report Flow Cytometry Case: [id number] Authorizing Provider: Kane Rodriguez MD Collected: 09/14/2023 09:26 AM Ordering Location: [facility] Pathology Lab Received: 09/14/2023 03:47 PM Pathologist: Luis Carlos Kuhn MD Specimen: Bone Marrow 09/15/2023 2:52 PM SENIOR FIRE PROTECTION ENGINEER [facility] Final Diagnosis Bone marrow, flow cytometric immunophenotypic analysis: - No diagnostic evidence of clonal B-cells or expanded T-cells, or acute leukemia. - See interpretation. 09/15/2023 2:52 PM SENIOR FIRE PROTECTION ENGINEER [facility] Flow Cytometry Interpretation Viability: 93% Lymphocytes: 16% B-cells: 3% of the lymphocytes, appear polyclonal, with kappa:lambda ratio 2.7:1 T-cells: 74% of the lymphocytes, no immunophenotypic aberrancy detected based on the markers performed. CD4:CD8 ratio 1.18:1 Dim CD45 Region: 16%. 2.7% of the total events are blasts as identified by CD34 stain. Monocytes: 22%. Unremarkable based on the markers performed Granulocytes: 46%. Unremarkable based on the markers performed A bone marrow aspirate smear prepared from the flow cytometry specimen has been reviewed for supervisor type disk quality control purposes. 09/15/2023 2:52 PM [facility] Flow Cytometry Results Differential Result Comment Flow Cell Count /uL 50,000 Total Viability % 93.0 Lymphocytes % 16 Dim CD45 Region % 16 Monocytes % 22 Granulocytes % 46 09/15/2023 2:52 PM [facility] Reason for test Other pancytopenia (CMS-HCC) 284.19 09/15/2023 2:52 PM [facility] Client Specimen ID # [id number] 09/15/2023 2:52 PM [facility] Number of markers 28 were performed. A-2 Flow CD10 A-3 Flow CD13 A-5 Flow CD20 A-11 Flow CD2 A-13 Flow CD14 A-16 Flow CD117 A-17 Flow CD11b A-18 Flow CD11c A-20 Flow CD3 A-21 Flow CD4 A-23 FLow CD16 A-1 Flow CD5 A-4 Flow CD19 A-6 Flow CD33 A-7 Flow CD34 A-8 Flow CD45 A-12 Flow CD7 A-14 Flow CD56 A-15 Flow CD64 A-22 Flow CD8 A-24 Flow CD26 A-25 Flow CD56 A-26 Flow CD57 A-27 TCR-AB A-28 TCR-GD A-9 [place]+CD19+ A-10 Lambda+CD19+ A-19 Flow HLA-DR 09/15/2023 2:52 PM [facility] Pathologist Location at [facility] 09/15/2023 2:52 PM [facility] Disclaimer Test performed at [facility], [address] [place] [address], [address]. *The established laboratory minimum viability is 70%. Values below the minimum may result in the failure to find an abnormal population of cells. This test was developed and its performance characteristics determined by the Flow Cytometry Laboratory. It has not been cleared by the [place] Food and Drug Administration (FDA). The FDA has determined that such clearance or approval is not necessary. This test is used for clinical purposes. It should not be regarded as investigational or for research. This laboratory is regulated under the Clinical Laboratory Improvement Amendments of 1998 (CLIA) as a qualified to perform high complexity clinical testing. 09/15/2023 2:52 PM [facility] Embedded Images 2:52 PM SENIOR FIRE PROTECTION ENGINEER [facility] Pathology/Cytolo gy BONE MARROW SPECIMEN / Unknown 09/14/2023 9:26 AM SENIOR FIRE PROTECTION ENGINEER 09/14/2023 3:47 PM SENIOR FIRE PROTECTION ENGINEER Destin Rodriguez MD LAB - PATHO LOGY/CYTOLOGY ORDERABLES [facility] [address] [place], [place] [id number] [place] [address] * BONE MARROW BIOPSY (STL) (09/14/2023 9:26 AM SENIOR FIRE PROTECTION ENGINEER) Case Report Bone Marrow Patholog y Report Case: [id number] Authorizing Provider: Kane Rodriguez MD Collected: 09/14/2023 09:26 AM Ordering Location: [facility] Pathology Lab Received: 09/15/2023 02:36 PM Pathologist: Luis Carlos Kuhn MD Specimens: A) - Bone Marrow Clot B) - Bone Marrow Core 09/16/2023 2:10 PM [facility] Final Diagnosis Bone marrow, aspirate, clot section, and core biopsy: - Hypercellular bone marrow for age (60% cellularity) - Trilineage hematopoiesis with increased myeloids and mild left shift - No significant dyspoiesis. Peripheral blood smear: - Marked leukopenia - Mild normocytic normochromic anemia, and mild thrombocytopenia 09/16/2023 2:10 PM [facility] Comment There is no diagnostic evidence of advanced myelodysplastic neoplasm, acute leukemia, or lymphoma. Clinical correlation, and correlation with available cytogenetics, and molecular studies recommended. 09/16/2023 2:10 PM [facility] Peripheral Smear Description RBC: Normocytic and normochromic anemia, mild. No circulating nucleated RBCs. WBC: Markedly decreased in number with predominantly lymphocytes, no circulating blasts seen Platelets: Mildly decreased in number. Normal granulation. Rare giant forms. 09/16/2023 2:10 PM SENIOR FIRE PROTECTION ENGINEER [facility] Bone Marrow Aspirate Specimen quality: Adequate Spicules: Present Trilineage Hematopoiesis: Normal Myeloid:Erythroid ratio: Increased Myeloid Maturation: Normal Erythroid Maturation: Normal, rare cells with nuclear contour irregularity, and rare binucleated cells Megakaryocyte morphology: Normal, rare microcytic forms, and forms with hypo- or mono-lobation Storage iron (by special stain): Decreased Sideroblastic iron (by special stain): No ring sideroblasts seen 09/16/2023 2:10 PM [facility] Bone Marrow Core [...] to core biopsy specimen 09/16/2023 2:10 PM [facility] Flow Cytometry Summary Bone marrow, flow cytometric immunophenotypic analysis: - No diagnostic evidence of clonal B-cells or expanded T-cells, or acute leukemia. 09/16/2023 2:10 PM [facility] Clinical History 77-year-old male with pancytopenia. 09/16/2023 2:10 PM [facility] Materials Received Received are 20 slide(s) and 3 block(s) labeled [id number] along with a copy of the outside pathology report. [place] [address]. All original materials are returned to the referring institution, along with a copy of our final report. 09/16/2023 2:10 PM [facility] Pathologist Location at [facility] 09/16/2023 2:10 PM [facility] Disclaimer The performance characteristics of all immunohistochemical and indirect immunofluorescence stains (if any) cited in this report were determined by the Histopathology Laboratory of [facility]. Some of these tests were developed by [...] the attending (teaching) pathologist. 09/16/2023 2:10 PM SENIOR FIRE PROTECTION ENGINEER [facility] Embedded Images 09/16/2023 2:10 PM SENIOR FIRE PROTECTION ENGINEER [facility] Pathology/Cytology BONE MARROW SPECIMEN / Unknown 09/14/2023 9:26 AM SENIOR FIRE PROTECTION ENGINEER 09/15/2023 2:36 PM SENIOR FIRE PROTECTION ENGINEER Miscellaneous samples (specimen) BONE MARROW SPECIMEN / Unknown 09/14/2023 9:26 AM SENIOR FIRE PROTECTION ENGINEER 09/15/2023 2:36 PM SENIOR FIRE PROTECTION ENGINEER Destin Rodriguez MD LAB - PATHO LOGY/CYTOLOGY ORDERABLES Performing Organization Address City/State/[facility] Co de Phone Number [facility] [address] [phone] Care Teams Cartridge Maker Relationship Specialty Start Date End Date Adryan Pedro DO [address] [facility] [address] [facility] 21 [place] [address] PCP - General 02/09/19
--- OUTSIDE RECORDS SUMMARY | 2024-11-30 09:40 | XMS_ITS | Encounter Summary ---
Author Organization [facility] Address [address] [place] [address] Care Team Providers Care Automation Driver Name Role Phone Adryan Pedro Primary Care Provider [phone] Encounter Details Date Type Department Care Team (Late st Contact Info) Description 09/14/2023 Lab Requisition [facility] - Pathology Lab [address] [place] [address] Destin Rodriguez MD [address] [address] Other pancytopenia (HCC) Social History Tobacco Use Types Packs/Day Years Used Date Smoking Tobacco: Never Assessed Sex and Gender Information Value Date Recorded Sex Assigned at Not on file Gender Identity Not on file Sexual Orientation Not on file documented as of this encounter Plan of Treatment Not on file documented as of this encounter Procedures Procedure Name Priority Date/Time Associated Diagnosis Comments FLOW CYTOMETRY BONE MARROW Routine 09/14/2023 9:26 AM VOCATIONAL CASE MANAGER Other pancytopenia (CMS-HCC) documented in this encounter Results * FLOW CYTOMETRY BONE MARROW (09/14/2023 9:26 AM VOCATIONAL CASE MANAGER) Case Report Flow Cytometry Case: [id number] Authorizing Provider: Kane Rodriguez MD Collected: 09/14/2023 09:26 AM Ordering Location: [facility] Pathology Lab Received: 09/14/2023 03:47 PM Pathologist: Luis Carlos Kuhn MD Specimen: Bone Marrow 09/15/2023 2:52 PM VOCATIONAL CASE MANAGER [facility] PATHOLOGY [facility] Final Diagnosis Bone marrow, flow cytometric immunophenotypic analysis: - No diagnostic evidence of clonal B-cells or expanded T-cells, or acute leukemia. - See interpretation. 09/15/2023 2:52 PM [facility] PATH[facility] Flow Cytometry Interpretation Viability: [...] flow cytometry specimen has been reviewed for quality assurance clerk purposes. 09/15/2023 2:52 PM [facility] Flow Cytometry Results Differential Result Comment Flow Cell Count /uL 50,000 Total Viability % 93.0 Lymphocytes % 16 Dim CD45 Region % 16 Monocytes % 22 Granulocytes % 46 09/15/2023 2:52 PM [facility] Reason for test Other pancytopenia ([facility]-HCC) 284.19 09/15/2023 2:52 PM [facility] Client Specimen ID # [id number] 09/15/2023 2:52 PM [facility] Number of markers 28 were [...] Flow CD57 A-27 TCR-AB A-28 TCR-GD A-9 [place]+CD19+ A-10 Lambda+CD19+ A-19 Flow HLA-DR 09/15/2023 2:52 PM [facility] Pathologist Location at [facility] 09/15/2023 2:52 PM [facility] Disclaimer Test performed at [facility], [address] [place], [place], [address]. *The established laboratory minimum viability is 70%. [...] high complexity clinical testing. 09/15/2023 2:52 PM [facility] Embedded Images 2:52 PM [facility] Pathology/Cytolo gy BONE MARROW SPECIMEN / Unknown 09/14/2023 9:26 AM VOCATIONAL CASE MANAGER 09/14/2023 3:47 PM VOCATIONAL CASE MANAGER Destin Rodriguez MD LAB - PATHO LOGY/CYTOLOGY ORDERABLES [facility] PATH[facility] [address] [facility]. [address] [phone] documented in this encounter Visit Diagnoses Diagnosis Other pancytopenia (HCC) Other pancytopenia documented in this encounter Care Teams Automation Driver Relationship Specialty Start Date End Date Adryan Pedro DO [address] [facility] [address] [facility] 21 [place] [address] PCP - General 02/09/19 documented as of this encounter
== END 2024-11-30 09:15 | disposition home or self-care (01) ==
PROVIDERS: PCP Internal Medicine; Visit Provider Internal Medicine Hematology & Oncology
DX: D61.818 Other pancytopenia (principal)
CPT/HCPCS: 36415; 80047; 85025; 85055

== ENCOUNTER 2025-02-25 11:07 | Outpatient (CLI) | payer MEDICARE, SELFPAY ==
[2025-02-25 11:35] LABS: Hematocrit 37.1 % (42.0-52.0); Hemoglobin 12.3 g/dL (14.0-18.0); Immature Granulocyte Absolute 0.01 K/mm3 (0.00-0.031); Immature Granulocyte Percent A 0.6 % (0-0.5); Immature Platelet Fraction Pct 15.3 % (0.9-11.2); Lymphocytes Absolute Auto 1.04 K/mm3 (0.9-3.2); Lymphocytes Percent Auto 60.8 % (18.3-44.2); Mean Corpuscular HGB Conc 33.2 g/dl (32-36); Mean Corpuscular Hemoglobin 32.1 pg (26-34); Mean Corpuscular Volume 96.9 fl (80-100); Mean Platelet Volume 12.9 fl (7.4-10.4); Monocytes Absolute Auto 0.5 K/mm3 (0.1-0.6); Monocytes Percent Auto 27.5 % (2.6-8.5); Neutrophils Percent Auto 11.1 % (45.5-73.1); Platelet Count Result 98 k/mm3 (150-375); Red Blood Count 3.83 M/mm3 (4.6-6.20); Red Cell Distribution Width 14.1 % (11.5-14.5)
[2025-02-25 11:36] LABS: White Blood Count 1.7 K/mm3 (4.5-10.0)
[2025-02-25 11:37] LABS: Neutrophils Absolute Auto 0.2 K/mm3 (1.3-6.7)
--- OUTSIDE RECORDS SUMMARY | 2025-02-25 11:42 | XMS_ITS | Encounter Summary ---
Author Organization [facility] Address [address] [place] [address] Care Team Providers Care Weighbridge Operator Name Role Phone Adryan Pedro Primary Care Provider [phone] Encounter Details Date Type Department Care Team (Late st Contact Info) Description 09/14/2023 Lab Requisition [facility] - Pathology Lab [address] [place] [address] Destin Rodriguez MD [address] [address] Other pancytopenia Social History Tobacco Use Types Packs/Day Years Used Date Smoking Tobacco: Never Assessed Sex and Gender Information Value Date Recorded Sex Assigned at Not on file Legal Sex Male 4:08 AM CDT Gender Identity Not on file Sexual Orientation Not on file documented as of this encounter Plan of Treatment Not on file documented as of this encounter Procedures Procedure Name Priority Date/Time Associated Diagnosis Comments FLOW CYTOMETRY BONE MARROW Routine 09/14/2023 9:26 AM DIRECTOR OF INSTRUCTIONAL TECHNOLOGY Other pancytopenia ([facility]) documented in this encounter Results * FLOW CYTOMETRY BONE MARROW (09/14/2023 9:26 AM DIRECTOR OF INSTRUCTIONAL TECHNOLOGY) Case Report Flow Cytometry Case: [id number] Authorizing Provider: Kane Rodriguez MD Collected: 09/14/2023 09:26 AM Ordering Location: [facility] Pathology Lab Received: 09/14/2023 03:47 PM Pathologist: Luis Carlos Kuhn MD Specimen: Bone Marrow 09/15/2023 2:52 PM [facility] PATHOLOGY LAB Final Diagnosis Bone marrow, flow cytometric immunophenotypic analysis: - No diagnostic evidence of clonal B-cells or expanded T-cells, or acute leukemia. - See interpretation. 09/15/2023 2:52 PM [facility] PATHOLOGY LAB at [address]52 DIRECTOR OF INSTRUCTIONAL TECHNOLOGY Flow Cytometry Interpretation Viability: 93% Lymphocytes: 16% [...] flow cytometry specimen has been reviewed for software quality specialist purposes. 09/15/2023 2:52 PM [facility] PATH[facility] Flow Cytometry Results Differential Result Comment Flow Cell Count /uL 50,000 Total Viability % 93.0 Lymphocytes % 16 Dim CD45 Region % 16 Monocytes % 22 Granulocytes % 46 09/15/2023 2:52 PM [facility] Reason for test Other pancytopenia ([facility]-H[facility]) 284.19 09/15/2023 2:52 PM [facility] PATH[facility] Client Specimen ID # [id number] 09/15/2023 2:52 PM [facility] PATH[facility] Number of markers [...] Flow CD57 A-27 TCR-AB A-28 TCR-GD A-9 [place]+CD19+ A-10 Lambda+CD19+ A-19 Flow HLA-DR 09/15/2023 2:52 PM [facility] PATH[facility] Pathologist Location at [facility] 09/15/2023 2:52 PM [facility] PATH[facility] LAB Disclaimer Test performed at [facility], [address] [place], [place], [address]. *The established laboratory minimum viability is 70%. [...] high complexity clinical testing. 09/15/2023 2:52 PM [facility] PATH[facility] LAB Embedded Images 2:52 PM [facility] Pathology/Cytolo gy BONE MARROW SPECIMEN / Unknown 09/14/2023 9:26 AM DIRECTOR OF INSTRUCTIONAL TECHNOLOGY 09/14/2023 3:47 PM DIRECTOR OF INSTRUCTIONAL TECHNOLOGY Destin Rodriguez MD LAB - PATHOLOGY/CYT OLOGY ORDERABLES Final Result [facility] LAB [address] [facility] [place] [address], [facility] [phone] documented in this encounter Visit Diagnoses Diagnosis Other pancytopenia (HCC) Other pancytopenia documented in this encounter Care Teams Weighbridge Operator Relationship Specialty Start Date End Date Adryan Pedro DO [address] [place] [address] PCP - General 02/09/19 documented as of this encounter
--- OUTSIDE RECORDS SUMMARY | 2025-02-25 11:42 | XMS_ITS | Clinical Summary ---
Author Organization [facility] Devin biggs Darcie Address [address] [facility] [address] Care Team Providers Care Clinical Nurse Manager Name Role Phone Leobardo Oshea DO Primary Care Provider [phone] Allergies No known active allergies Medications apixaban (Eliquis) 5 mg tablet Take 5 mg by mouth 2 times daily. Active ibuprofen (ADVIL;MOTRIN) 100 mg/5 mL suspension Take 100 mg by mouth every 6 hours as needed. Active Active Problems No known active problems Encounters Date Type Department Care Team Description 02/22/2025 Orders Only [facility] Oncology and Hematology - [place] [address] [place] [address] Robe Gaston MD 02/19/2025 External Device Data STL ABSTRACTION Provider, Abstract 02/19/2025 External Device Data STL ABSTRACTION Provider, Abstract 02/13/2025 External Device Data STL ABSTRACTION Provider, Abstract 02/13/2025 External Device Data STL ABSTRACTION Provider, Abstract 12/12/2024 External Device Data STL ABSTRACTION Provider, Abstract 12/01/2024 External Device Data STL ABSTRACTION Provider, Abstract 12/01/2024 External Device Data STL ABSTRACTION Provider, Abstract 11/30/2024 9:45 AM PASSENGER REPRESENTATIVE Office Visit [facility] Oncology and Hematology - [place] [address] [place] [address] Robe Gaston MD Pancytopenia (CMS/HCC) (Primary Dx) 11/30/2024 Orders Only [facility] Oncology and Hematology - [place] [address] [place] [address] Robe Gaston MD from Last 3 Months Family History Medical [...] on file Legal Sex Male 8:30 AM PASSENGER REPRESENTATIVE Gender Identity Not on file Sexual Orientation Not on file Last Filed Vital Signs Vital Sign Reading Time Taken Comments Blood Pressure 133/74 11/30/2024 10:04 AM PASSENGER REPRESENTATIVE Pulse 73 11/30/2024 10:04 AM PASSENGER REPRESENTATIVE Temperature 35.9 C (96.6 F) 11/30/2024 10:04 AM PASSENGER REPRESENTATIVE Respiratory Rate 15 11/30/2024 10:04 AM PASSENGER REPRESENTATIVE Oxygen Saturation 90% 11/30/2024 10:04 AM PASSENGER REPRESENTATIVE Inhaled Oxygen Concentration - - Weight 92.8 kg (204 lb 9.6 oz) 11/30/2024 10:04 AM PASSENGER REPRESENTATIVE Height 182.9 cm (6') 09/06/2023 10:35 AM PASSENGER REPRESENTATIVE Body Mass Index 27.75 09/06/2023 10:35 AM PASSENGER REPRESENTATIVE Plan of Treatment Upcoming Encounters Date Type Department Care Team (Late st Contact Info) Description 02/26/2025 1:15 PM CDT Office Visit [facility] Oncology and Hematology - [place] [address] [facility] [address] [place] [address] Robe Gaston MD [address] [facility] [address] [place] [address] Health Maintenance Due Date Last Done Comments DTAP/TDAP/TD VACCINES (1 - Tdap) 1964 PNEUMOCOCCAL VACCINE 50+ YEARS (1 of 1 - PCV) 09/24/19 94 ZOSTER VACCINE (1 of 2) 1994 RSV VACCINE (60+ or ) (1 - 1-dose 75+ series) 2019 INFLUENZA VACCINE (#1) 2024 COVID-19 Vaccine (2 - 2023- season) 2024 Procedures Procedure Name Priority Date/Time Associated Diagnosis Comments CBC WITH DIFFERENTIAL Routine 02/21/2025 12:47 PM CDT CBC WITH AUTODIFFERENTIAL Routine 2024 1:02 PM PASSENGER REPRESENTATIVE from Last 3 Months Results * CBC WITH DIFFERENTIAL (02/21/2025 12:47 PM CDT) Blood Robe Gaston MD HEMATOLOGY ORDERABLES Final Res ult * CBC WITH AUTODIFFERENTIAL (11/30/2024 1:02 PM PASSENGER REPRESENTATIVE) Blood Robe Gaston MD HEMATOLOGY ORDERABLES Final Res ult from Last 3 Months Insurance [employer] PPO MCR Care Teams Clinical Nurse Manager Relationship Specialty Start Date End Date Leobardo Oshea DO [address] [facility] [address] [place] [address] PCP - General Internal Medicine 11/30/24
--- OUTSIDE RECORDS SUMMARY | 2025-02-25 11:42 | XMS_ITS | Encounter Summary ---
Author Organization [facility] Rypple [facility] Address [address] [place] [address] Care Team Providers Care Ux Researcher Name Role Phone Leobardo Oshea DO Primary Care Provider [phone] Encounter Details Date Type Department Care Team (Late Contact Info) Description 02/22/2025 Orders Only [facility] Oncology [facility] [address] [place] [address] Robe Gaston MD [address] [place] [address] [address] [place] [address] Social History Tobacco Use Types Packs/Day Years Used Date Smoking Tobacco: Never Smokeless Tobacco: Never Alcohol Use Standard Drinks/Week Comments Yes 0 (1 standard drink = 0.6 oz pur e alcohol) socially Sex and Gender Information Value Date Recorded Sex Assigned at Not on file Legal Sex Male 8:30 AM ENGRAVER APPRENTICE DECORATIVE Gender Identity Not on file Sexual Orientation Not on file documented as of this encounter Plan of Treatment Upcoming Encounters Date Type Department Care Team (Late Contact Info) Description 02/26/2025 1:15 PM CDT Office Visit [facility] Oncology and Hematology [facility] [place] [address] [place] [address] Robe Gaston MD [address] [place] [address] [address] [place] [address] documented as of this encounter Procedures Procedure Name Priority Date/Time Associated Diagnosis Comments CBC WITH DIFFERENTIAL Routine 02/21/2025 12:47 PM CDT documented in this encounter Results * CBC WITH DIFFERENTIAL (02/21/2025 12:47 PM CDT) Blood us Robe Gaston MD HEMATOLOGY ORDERABLES Final Res ult documented in this encounter Visit Diagnoses Not on filedocumented in this encounter Care Teams Ux Researcher Relationship Specialty Start Date End Date Leobardo Oshea DO [address] [facility] [address] [place] [phone] PCP - General Internal Medicine 11/30/24 documented as of this encounter
--- OUTSIDE RECORDS SUMMARY | 2025-02-25 11:42 | XMS_ITS | Encounter Summary ---
Author Organization [facility] Address [address] [facility] [place] [address] Care Team Providers Care Aircraft Motor Mechanic Name Role Phone Adryan Pedro Primary Care Provider [phone] Encounter Details Date Type Department Care Team (Late st Contact Info) Description 09/15/2023 Lab Requisition [facility] - Pathology Lab [address] [place] [address] Destin Rodriguez MD [address] [address] Illness, unspecified Social History Tobacco [...] MARROW BIOPSY (STL) Routine 09/14/2023 9:26 AM SUCCESSFACTORS CONSULTANT Illness, unspecified documented in this encounter Results * BONE MARROW BIOPSY (STL) (09/14/2023 9:26 AM SUCCESSFACTORS CONSULTANT) Case Report Bone Marrow Patholog y Report Case: [id number] Authorizing Provider: Kane Rodriguez MD Collected: 09/14/2023 09:26 AM Ordering Location: [facility] Pathology Lab Received: 09/15/2023 02:36 PM Pathologist: Luis Carlos Kuhn MD Specimens: A) - Bone Marrow Clot B) - Bone Marrow Core 09/16/2023 2:10 PM [facility] Final Diagnosis Bone marrow, aspirate, clot section, and core biopsy: - Hypercellular bone marrow for age (60% cellularity) - Trilineage hematopoiesis with increased myeloids and mild left shift - No significant dyspoiesis. Peripheral blood smear: - Marked leukopenia - Mild normocytic normochromic anemia, and mild thrombocytopenia 09/16/2023 2:10 PM [facility] at [address] SUCCESSFACTORS CONSULTANT AP Comment There is no diagnostic evidence of advanced myelodysplastic neoplasm, acute leukemia, or lymphoma. Clinical correlation, and correlation with available cytogenetics, and molecular studies recommended. 09/16/2023 2:10 PM [facility] Peripheral Smear Description RBC: Normocytic and normochromic anemia, mild. No circulating nucleated RBCs. WBC: Markedly decreased in number with predominantly lymphocytes, no circulating blasts seen Platelets: Mildly decreased in number. Normal granulation. Rare giant forms. 09/16/2023 2:10 PM [facility] Bone Marrow Aspirate Specimen quality: Adequate Spicules: Present Trilineage Hematopoiesis: Normal Myeloid:Erythroid ratio: Increased Myeloid Maturation: Normal Erythroid Maturation: Normal, rare cells with nuclear contour irregularity, and rare binucleated cells Megakaryocyte morphology: Normal, rare microcytic forms, and forms with hypo- or mono-lobation Storage iron (by special stain): Decreased Sideroblastic iron (by special stain): No ring sideroblasts seen 09/16/2023 2:10 PM [facility] Bone Marrow Core Biopsy and [...] to core biopsy specimen 09/16/2023 2:10 PM [facility] Flow Cytometry Summary Bone marrow, flow cytometric immunophenotypic analysis: - No diagnostic evidence of clonal B-cells or expanded T-cells, or acute leukemia. 09/16/2023 2:10 PM [facility] Clinical History 77-year-old male with pancytopenia. 09/16/2023 2:10 PM [facility] Materials Received Received are 20 slide(s) and 3 block(s) labeled [id number] along with a copy of the outside pathology report. [place] [address]. All original materials are returned to the referring institution, along with a copy of our final report. 09/16/2023 2:10 PM [facility] Pathologist Location at [facility] 09/16/2023 2:10 PM [facility] Disclaimer The performance characteristics of all immunohistochemical and indirect immunofluorescence stains (if any) cited in this report were determined by the Histopathology Laboratory of [facility]. Some of these tests were developed [...] the attending (teaching) pathologist. 09/16/2023 2:10 PM [facility] Embedded Images 09/16/2023 2:10 PM [facility] Pathology/Cytology BONE MARROW SPECIMEN / Unknown 09/14/2023 9:26 AM SUCCESSFACTORS CONSULTANT 09/15/2023 2:36 PM SUCCESSFACTORS CONSULTANT Miscellaneous samples (specimen) BONE MARROW SPECIMEN / Unknown 09/14/2023 9:26 AM SUCCESSFACTORS CONSULTANT 09/15/2023 2:36 PM SUCCESSFACTORS CONSULTANT Destin Rodriguez MD LAB - PATHOLOGY/CYT OLOGY ORDERABLES Final Result [facility] PATHOLOGY LAB [address] [place] [address], [facility] [phone] documented in this encounter Visit Diagnoses Diagnosis Illness, unspecified documented in this encounter Care Teams Aircraft Motor Mechanic Relationship Specialty Start Date End Date Adryan Pedro DO [address] [facility] [address] [facility] [address] [place] [address] PCP - General 02/09/19 documented as of this encounter
--- OUTSIDE RECORDS SUMMARY | 2025-02-25 11:42 | XMS_ITS | Clinical Summary ---
Author Organization [facility] Address [address] [facility] [address] [place] [address] Care Team Providers Care Stud Setter Name Role Phone Willis Adryan Colin DO Primary Care Provider [phone] Source Comments [facility],non-owned Affiliates and Associated Physician Practices is amultiple site organization consisting of ambulatory clinics and hospital sitesin [place], [place] and [place]. This disclosure is being madepursuant to the Care Everywhere program and may not contain all information available regarding this patient. Last updated 18.[facility] Allergies No known active allergies Medications * Be aware that medications may not be up to date on this document. Alwaysverify current medications with the patient. Eliquis 5 MG tablet Take 1 (one) [...] 3:15 PM CDT Height 183 cm (6' 0.05) 12/15/2023 3:15 PM CDT Body Mass Index [...] 2024 06/22/2023, 07/05/2022, 08/21/2021, Additional history exists DEPRESSION SCREENING 09/26/2024 MEDICARE AWV CALENDAR YEAR 2024 INFLUENZA VACCINE (Season Ended) 2025 06/22/2023, 07/05/2022 HEPATITIS B VACCINE Aged Out No longe r eligible based on patient's age to complete this topic HIB VACCINE Aged Out No longer eligi ble based on patient's age to complete this topic HPV VACCINE Aged Out No longer eligi ble based on patient's age to complete this topic MENINGOCOCCAL (Group B) VACCINE SHARED DECISION-MAKING Aged Out No longer eligible based on patient's age to complete this topic MENINGOCOCCAL GROUPS A/C/Y/W VACCINE Aged Out No longer eligible based on patient's age to complete this topic Insurance AETNA MEDICARE ADV Care Teams Stud Setter Relationship Specialty Start Date End Date Adryan Pedro DO [address] [facility] [address] [place] [address] PCP - General 02/09/19
--- OUTSIDE RECORDS SUMMARY | 2025-02-25 11:42 | XMS_ITS | Continuity of Care Document ---
Author Organization [facility] Address [address] [place] [address] [facility] [address] [place] [address] Phone Care Team Providers Care Covering Machine Operator Helper Name Role Phone Luís Schwartz Unavailable Unavailable Procedures Procedure Date Eye Exam, New Patient Advance Directives Directive Yes / No Effective Date File Name No Information Encounters Encounter Description Practice Location Reason(s) For Visit Diagnoses Date Provider Providers Copied on Encounter [facility], [address], [place], [place], [id number], [place] tel:[phone] [facility] No Information [phone] Nirajangiefabiola Luís. [address] [facility] [address], [address], [place]. tel:[phone] Family History Family Member Type Diagnosis Age At Onset No Information Payers Payer name Insurance type Covered democrat ID Authoriza tion(s) [place] [id number] Social History Type Description Quantity Date Captured [...]
[2025-02-25 14:01] LABS: Iron 95 ug/dL (49-181)
[2025-02-25 14:05] LABS: Alanine Aminotransferase 11 U/L (6-50); Albumin Level 4.6 g/dL (3.5-5.1); Alkaline Phosphatase 47 U/L (38-126); Anion Gap 7 mmol/L (4-12); Aspartate Amino Transferase 23 U/L (17-59); Bilirubin,Total 0.6 mg/dL (0.2-1.3); Blood Urea Nitrogen 22 mg/dL (9-20); Calcium 9.1 mg/dL (8.4-10.2); Carbon Dioxide 27 mmol/L (22-30); Chloride 107 mmol/L (98-107); Estimated Glomerular Filt Rate > 60; Glucose 115 mg/dL (65-110); Potassium 4.9 mmol/L (3.4-5.0); Sodium 141 mmol/L (137-145)
[2025-02-25 14:11] LABS: Percent Iron Saturation 30 % (20-50)
[2025-02-25 15:14] LABS: Folic Acid 6.5 ng/mL (2.76->20)
== END 2025-02-25 11:08 | disposition home or self-care (01) ==
LOC: ANHLAB 11:07
PROVIDERS: PCP Internal Medicine; Visit Provider Internal Medicine Hematology & Oncology
DX: D61.818 Other pancytopenia (principal); D64.9 Anemia, unspecified
CPT/HCPCS: 36415; 80053; 82607; 82728; 82746; 83540; 83550; 85025; 85055

== ENCOUNTER 2025-03-22 11:17 | Outpatient (CLI) | payer MEDICARE, SELFPAY ==
--- NOTE | ~2025-03-22 | XR_ITS ---
EXAM/PROCEDURE: XR chest 2V - 03/22/2025 11:35 CDT HISTORY: 79 years old Male with R05.9 - Cough, unspecified TECHNIQUE: Two view(s) of the chest. COMPARISON: None available. FINDINGS: LUNGS/ PLEURA: Bibasilar airspace opacities may represent atelectasis, scarring versus pneumonia in a ppropriate clinical settings. No pleural effusions or pneumothorax. HEART/ MEDIASTINUM: Heart appears normal in size. BONES: No acute osseous abnormality. OTHER: Visualized upper abdomen is unremarkable. IMPRESSION: Bibasilar airspace opacities may represent atelectasis, scarring versus pneumonia in appropriate clin ical settings. Correlate clinically. Short-term follow-up chest radiograph is recommended after appro priate clinical therapy. Reviewed, dictated and finalized at location A. IMPRESSION: Bibasilar airspace opacities may represent atelectasis, scarring versus pneumon ia in appropriate clinical settings. Correlate clinically. Short-term follow-up chest radiograph is recommended after appropriate clinical therapy.
== END 2025-03-22 11:18 | disposition home or self-care (01) ==
PROVIDERS: PCP Internal Medicine; Visit Provider Internal Medicine
DX: R91.8 Other nonspecific abnormal finding of lung field (principal)
CPT/HCPCS: 71046

== ENCOUNTER 2025-06-17 09:31 | Outpatient (CLI) | payer MEDICARE, SELFPAY ==
[2025-06-17 10:07] LABS: Hematocrit 35.9 % (42.0-52.0); Hemoglobin 12.0 g/dL (14.0-18.0); Immature Granulocyte Percent A 0.0 % (0-0.5); Lymphocytes Absolute Auto 0.88 K/mm3 (0.9-3.2); Mean Corpuscular HGB Conc 33.4 g/dl (32-36); Mean Corpuscular Hemoglobin 33.1 pg (26-34); Mean Corpuscular Volume 98.9 fl (80-100); Nucleated Red Blood Cells Absolute Auto 0.000 K/mm3 (0.0-0.012); Nucleated Red Blood Cells Perc 0.0 % (0.0-0.2); Platelet Count Result 104 k/mm3 (150-375); Red Blood Count 3.63 M/mm3 (4.6-6.20)
[2025-06-17 10:12] LABS: White Blood Count 1.6 K/mm3 (4.5-10.0)
--- OUTSIDE RECORDS SUMMARY | 2025-06-17 10:28 | XMS_ITS | Clinical Summary ---
Author Organization [facility] dian [facility] Address [address] [place] [address] Care Team Providers Care Manager Front Office Name Role Phone Leobardo Oshea DO Primary Care Provider [phone] Allergies No known active allergies Medications apixaban (Eliquis) 5 mg tablet Take 5 mg by mouth 2 times daily. Active ibuprofen (ADVIL;MOTRIN) 100 mg/5 mL suspension Take 100 mg by mouth every 6 hours as needed. Active Active Problems No known active problems Encounters Date Type Department Care Team Description 06/11/2025 External Device Data STL ABSTRACTION Provider, Abstract 06/11/2025 External Device Data STL ABSTRACTION Provider, Abstract 05/15/2025 External Device Data STL ABSTRACTION Provider, Abstract 05/14/2025 External Device Data STL ABSTRACTION Provider, Abstract 05/01/2025 External Device Data STL ABSTRACTION Provider, Abstract 04/10/2025 External Device Data STL ABSTRACTION Provider, Abstract 04/10/2025 External Device Data STL ABSTRACTION Provider, Abstract 04/10/2025 External Device Data STL ABSTRACTION Provider, Abstract [...] on file Legal Sex Male 8:30 AM VETERINARY MANAGER Gender Identity Not on file Sexual Orientation Not on file Last Filed Vital Signs Vital Sign Reading Time Taken Comments Blood Pressure 125/76 02/26/2025 1:12 PM CDT Pulse 72 02/26/2025 1:12 PM CDT Temperature 36.7 C (98 F) 02/26/2025 1:12 PM CDT Respiratory Rate 15 02/26/2025 1:12 PM CDT Oxygen Saturation 96% 02/26/2025 1:12 PM CDT Inhaled Oxygen Concentration - - Weight 92.4 kg (203 lb 12.8 oz) 02/26/2025 1:12 PM CDT Height 182.9 cm (6') 09/06/2023 10:35 AM VETERINARY MANAGER Body Mass Index 27.64 09/06/2023 10:35 AM VETERINARY MANAGER Plan of Treatment Upcoming Encounters Date Type Department Care Team (Late st Contact Info) Description 06/21/2025 9:30 AM CDT Office Visit [facility] Oncology and Hematology - [place] [address] [facility] [address] [place] [address] Robe Gaston MD [address] [facility] [address] [place] [address] Health Maintenance Due Date Last Done Comments DTAP/TDAP/TD VACCINES (1 - Tdap) 1964 PNEUMOCOCCAL VACCINE 50+ YEARS (1 of 1 - PCV) 09/24/19 94 ZOSTER VACCINE (1 of 2) 1994 RSV VACCINE (60+ or ) (1 - 1-dose 75+ series) 2019 Medicare Advantage ([place]) Prev entative Visit/Annual Wellness Visit 09/26/2024 INFLUENZA VACCINE (#1) 2025 COVID-19 Vaccine (2 - 2024- season) 2025 Insurance [employer] PPO [facility] Care Teams Manager Front Office Relationship Specialty Start Date End Date Leobardo Oseha DO [address] [facility] [address] [facility] [address] [place] [address] PCP - General Internal Medicine 11/30/24
--- OUTSIDE RECORDS SUMMARY | 2025-06-17 10:28 | XMS_ITS | Clinical Summary ---
Author Organization [facility] Address [address] [place] [address] Care Team Providers Care Career Representative Name Role Phone Willis Adryan Colin DO Primary Care Provider [phone] Source Comments [facility],non-owned Affiliates and Associated Physician Practices is amultiple site organization consisting of ambulatory clinics and hospital sitesin [place], [place], [place] and [place]. This disclosure is being madepursuant to the Care Everywhere program and may not contain all information available regarding this patient. Last updated 18.[facility] Allergies No known active allergies Medications * [...] yrs (1 - 1-dose 75+ series) 2019 DEPRESSION SCREENING 09/26/2024 MEDICARE AWV CALENDAR YEAR 2024 COVID-19 VACCINE ( season) 2025 06/22/2023, 07/05/2022, 08/21/2021, Additional history exists INFLUENZA VACCINE (#1) 2025 06/22/2023, 2021 HEPATITIS B VACCINE Aged Out No longe [...] topic Insurance [employer] MEDICARE ADV Care Teams Career Representative Relationship Specialty Start Date End Date Adryan Pedro DO [address] [facility] [address] [place] [address] PCP - General 02/09/19
--- OUTSIDE RECORDS SUMMARY | 2025-06-17 10:29 | XMS_ITS | Encounter Summary ---
Author Organization [facility] Address [address] [place] [address] Care Team Providers Care Industrial Staff Nurse Name Role Phone Adryan Pedro Primary Care Provider [phone] Encounter Details Date Type Department Care Team (Late st Contact Info) Description 09/14/2023 Lab Requisition [facility] - Pathology Lab [address] [place] [address] Destin Rodriguez MD [address] [address] Other pancytopenia Social History Tobacco [...] CYTOMETRY BONE MARROW Routine 09/14/2023 9:26 AM TABLEAU DEVELOPER Other pancytopenia ([facility]) documented in this encounter Results * FLOW CYTOMETRY BONE MARROW (09/14/2023 9:26 AM TABLEAU DEVELOPER) Case Report Flow Cytometry Case: [id number] Authorizing Provider: Kane Rodriguez MD Collected: 09/14/2023 09:26 AM Ordering Location: [facility] Pathology Lab Received: 09/14/2023 03:47 PM Pathologist: Luis Carlos Kuhn MD Specimen: Bone Marrow 09/15/2023 2:52 PM [facility] PATHOLOGY LAB Final Diagnosis Bone marrow, flow cytometric immunophenotypic analysis: - No diagnostic evidence of clonal B-cells or expanded T-cells, or acute leukemia. - See interpretation. 09/15/2023 2:52 PM [facility] PATH[facility] at [address] TABLEAU DEVELOPER Flow Cytometry Interpretation Viability: 93% Lymphocytes: 16% [...] specimen has been reviewed for quality assurance calibrator purposes. 09/15/2023 2:52 PM [facility] Flow Cytometry Results Differential Result Comment Flow Cell Count /uL 50,000 Total Viability % 93.0 Lymphocytes % 16 Dim CD45 Region % 16 Monocytes % 22 Granulocytes % 46 09/15/2023 2:[address] [facility] Reason for test Other pancytopenia ([facility]) 284.19 09/15/2023 2:52 PM [facility] [...] Flow CD57 A-27 TCR-AB A-28 TCR-GD A-9 [place]+CD19+ A-10 Lambda+CD19+ A-19 Flow HLA-DR 09/15/2023 2:52 PM [facility] Pathologist Location at [facility] 09/15/2023 2:52 PM [facility] Disclaimer Test performed at [facility], [address] [place], [place], [address]. *The established laboratory minimum viability is 70%. [...] high complexity clinical testing. 09/15/2023 2:52 PM [facility] Embedded Images 2:52 PM [facility] Pathology/Cytolo gy BONE MARROW SPECIMEN / Unknown 09/14/2023 9:26 AM TABLEAU DEVELOPER 09/14/2023 3:47 PM TABLEAU DEVELOPER Destin Rodriguez MD LAB - PATHOLOGY/CYT OLOGY ORDERABLES Final Result [facility] [address] [place] [address], [facility] [phone] documented in this encounter Visit Diagnoses Diagnosis Other pancytopenia (HCC) Other pancytopenia documented in this encounter Care Teams Industrial Staff Nurse Relationship Specialty Start Date End Date Adryan Pedro DO [address] [place] [address] PCP - General 02/09/19 documented as of this encounter
--- OUTSIDE RECORDS SUMMARY | 2025-06-17 10:29 | XMS_ITS | Encounter Summary ---
Author Organization [facility] Address [address] [address] Care Team Providers Care Senior Engineering Associate Name Role Phone Adryan Pedro Primary Care Provider [phone] Encounter Details Date Type Department Care Team (Late st Contact Info) Description 09/15/2023 Lab Requisition [facility] - Pathology Lab [address] [place] [address] Destin Rodriguez MD [address] [address] Illness, unspecified Social History Tobacco [...] MARROW BIOPSY (STL) Routine 09/14/2023 9:26 AM ASSOCIATE BRAND MANAGER Illness, unspecified documented in this encounter Results * BONE MARROW BIOPSY (STL) (09/14/2023 9:26 AM ASSOCIATE BRAND MANAGER) Case Report Bone Marrow Patholog y Report Case: [id number] Authorizing Provider: Kane Rodriguez MD Collected: 09/14/2023 09:26 AM Ordering Location: [facility] Pathology Lab Received: 09/15/2023 02:36 PM Pathologist: Luis Carlos Kuhn MD Specimens: A) - Bone Marrow Clot B) - Bone Marrow Core 09/16/2023 2:10 PM [facility] PATH[facility] Final Diagnosis Bone marrow, aspirate, clot section, and core biopsy: - Hypercellular bone marrow for age (60% cellularity) - Trilineage hematopoiesis with increased myeloids and mild left shift - No significant dyspoiesis. Peripheral blood smear: - Marked leukopenia - Mild normocytic normochromic anemia, and mild thrombocytopenia 09/16/2023 2:10 PM [facility] PATH[facility] at [address] ASSOCIATE BRAND MANAGER AP Comment There is no diagnostic evidence of advanced myelodysplastic neoplasm, acute leukemia, or lymphoma. Clinical correlation, and correlation with available cytogenetics, and molecular studies recommended. 09/16/2023 2:10 PM [facility] PATH[facility] Peripheral Smear Description RBC: Normocytic and normochromic anemia, mild. No circulating nucleated RBCs. WBC: Markedly decreased in number with predominantly lymphocytes, no circulating blasts seen Platelets: Mildly decreased in number. Normal granulation. Rare giant forms. 09/16/2023 2:10 PM [facility] Bone Marrow Aspirate Specimen quality: Adequate Spicules: Present Trilineage Hematopoiesis: Normal Myeloid:Erythroid ratio: Increased Myeloid Maturation: Normal Erythroid Maturation: Normal, rare cells with nuclear contour irregularity, and rare binucleated cells Megakaryocyte morphology: Normal, rare microcytic forms, and forms with hypo- or mono-lobation Storage iron (by special stain): Decreased Sideroblastic iron (by special stain): No ring sideroblasts seen 09/16/2023 2:10 PM [facility] Bone Marrow Core Biopsy and [...] to core biopsy specimen 09/16/2023 2:10 PM [facility] Flow Cytometry Summary Bone marrow, flow cytometric immunophenotypic analysis: - No diagnostic evidence of clonal B-cells or expanded T-cells, or acute leukemia. 09/16/2023 2:10 PM [facility] Clinical History 77-year-old male with pancytopenia. 09/16/2023 2:10 PM [facility] Materials Received Received are 20 slide(s) and 3 block(s) labeled [id number] along with a copy of the outside pathology report. [place] [address]. All original materials are returned to the referring institution, along with a copy of our final report. 09/16/2023 2:10 PM [facility] Pathologist Location at [facility] 09/16/2023 2:10 PM [facility] PATH[facility] Disclaimer The performance characteristics of all immunohistochemical and indirect immunofluorescence stains (if any) cited in this report were determined by the Histopathology Laboratory of [facility]. Some of these tests were developed [...] the attending (teaching) pathologist. 09/16/2023 2:10 PM [facility] Embedded Images 09/16/2023 2:10 PM [facility] Pathology/Cytology BONE MARROW SPECIMEN / Unknown 09/14/2023 9:26 AM ASSOCIATE BRAND MANAGER 09/15/2023 2:36 PM ASSOCIATE BRAND MANAGER Miscellaneous samples (specimen) BONE MARROW SPECIMEN / Unknown 09/14/2023 9:26 AM ASSOCIATE BRAND MANAGER 09/15/2023 2:36 PM ASSOCIATE BRAND MANAGER Destin Rodriguez MD LAB - PATHOLOGY/CYT OLOGY ORDERABLES Final Result [facility] [address] [place] [address], [facility] [phone] documented in this encounter Visit Diagnoses Diagnosis Illness, unspecified documented in this encounter Care Teams Senior Engineering Associate Relationship Specialty Start Date End Date Adryan Pedro DO [address] [facility] [address] [facility] [address] [place] [address] PCP - General 02/09/19 documented as of this encounter
[2025-06-17 12:18] LABS: Anion Gap 6 mmol/L (4-12); Blood Urea Nitrogen 13 mg/dL (9-20); Calcium 8.4 mg/dL (8.4-10.2); Carbon Dioxide 25 mmol/L (22-30); Chloride 107 mmol/L (98-107); Estimated Glomerular Filt Rate > 60; Glucose 100 mg/dL (65-110); Potassium 4.8 mmol/L (3.4-5.0); Sodium 138 mmol/L (137-145)
[2025-06-17 13:29] LABS: Vitamin B12 883.0 pg/mL (239-931)
== END 2025-06-17 09:32 | disposition home or self-care (01) ==
LOC: ANHLAB 09:34
PROVIDERS: PCP Internal Medicine; Visit Provider Internal Medicine Hematology & Oncology
DX: D61.818 Other pancytopenia (principal)
CPT/HCPCS: 36415; 80048; 82607; 82746; 85025